=== PATIENT | male | born 1970 | race Caucasian/White ===

== ENCOUNTER 2022-03-25 10:38 | Outpatient (CLI) | payer BC ==
[2022-03-26 00:48] LABS: SARS-CoV-2 PCR by NAA Not Detected (NotDetected)
== END 2022-03-25 10:39 | disposition home or self-care (01) ==
LOC: CSHLAB 10:38
PROVIDERS: ATTEND Internal Medicine Gastroenterology
DX: Z20.822 Contact with and (suspected) exposure to COVID-19 (principal); Z12.11 Encounter for screening for malignant neoplasm of colon
CPT/HCPCS: U0003; U0005

== ENCOUNTER 2022-03-28 09:34 | Day surgery (SDC) | payer BC ==
[2022-03-26 09:14] VITALS: BMI 33.0
[2022-03-28] MEDS ORDERED: Lidocaine 1% MPF 2 ML VIAL ONE (10:17)
[2022-03-28] MEDS ORDERED: PROPOFOL 20 ML ONE (11:47)
[2022-03-28] MEDS ORDERED: PROPOFOL 40 ML ONE (11:48)
== END 2022-03-28 12:55 | disposition home or self-care (01) ==
LOC: CSHSDC 09:34
PROVIDERS: ATTEND Internal Medicine Gastroenterology
PROC: 0DJD8ZZ Inspection of Lower Intestinal Tract, Via Natural or Artificial Opening Endoscopic (ICD-10-PCS; principal; 2022-03-28)
DX: Z12.11 Encounter for screening for malignant neoplasm of colon (principal); K57.30 Diverticulosis of large intestine without perforation or abscess without bleeding; K64.9 Unspecified hemorrhoids; I10 Essential (primary) hypertension; E78.5 Hyperlipidemia, unspecified; F41.9 Anxiety disorder, unspecified; F32.A Depression, unspecified
CPT/HCPCS: J2704

== ENCOUNTER 2022-08-21 07:27 | Day surgery (SDC) | payer BC ==
[2022-08-18 12:00] VITALS: BMI 33.3
[2022-08-21] MEDS ORDERED: PROPOFOL 60 ML ONE (08:51)
[2022-08-21] MEDS ORDERED: Fentanyl 100 MCG/2 ML VIAL ONE (08:52)
== END 2022-08-21 11:06 | disposition home or self-care (01) ==
LOC: CSHSDC 07:27
PROVIDERS: ATTEND Internal Medicine Gastroenterology
PROC: 0D758ZZ Dilation of Esophagus, Via Natural or Artificial Opening Endoscopic (ICD-10-PCS; principal; 2022-08-21)
PROC: 0DB78ZX Excision of Stomach, Pylorus, Via Natural or Artificial Opening Endoscopic, Diagnostic (ICD-10-PCS; principal; 2022-08-21)
DX: K22.2 Esophageal obstruction (principal); K21.9 Gastro-esophageal reflux disease without esophagitis; K29.60 Other gastritis without bleeding; K29.80 Duodenitis without bleeding; I10 Essential (primary) hypertension; E78.5 Hyperlipidemia, unspecified; F41.9 Anxiety disorder, unspecified; F32.A Depression, unspecified; Z88.1 Allergy status to other antibiotic agents; Z98.890 Other specified postprocedural states
CPT/HCPCS: 88305; J2704; J3010